=== PATIENT | female | born 1950 | race Caucasian/White ===

== ENCOUNTER 2018-06-26 08:03 | Emergency (ER) | payer MEDICARE ==
--- NOTE | 2018-06-26 08:42 | ER Document Report ---
ED General - General Chief Complaint: Chest Pain Stated Complaint: CHEST PAIN Time Seen by Provider: 06/26/18 08:24 Mode of Arrival: Ambulatory Information source: Patient Notes: 68-year-old female with a history of factor V Leiden presents emergency department with complaints of chest pain. She states that she had a sharp stabbing sensation located in the center of the chest that occurred 1 hour prior to arrival. Patient states that the pain lasted a few minutes and then resolved on its own. She states that she did have some brief shortness of breath associated with the pain. She also describes bilateral arm numbness and nausea with the pain. Patient states that the pain resolved on its own. She did not take any medication. She denies any alleviating or exacerbating factors. Patient states that she has been having this pain intermittently over the last 4 weeks. Patient notes that occasionally she will have lightheadedness, decreased vision, and near syncope associated with the chest pain. 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 2014 and 2016 that were normal. No stents were placed. She does have a history of hypertension and is on hydrochlorothiazide. Patient denies any hyperlipidemia, diabetes, coronary artery disease, family history of coronary artery disease, smoking. She also denies any calf pain, calf swelling, history of DVT or PE, hormone use, history of malignancy. - HPI Onset: Just prior to arrival Onset/Duration: Sudden Quality of pain: Sharp, Stabbing Severity: Moderate Associated symptoms: Chest pain, Shortness of breath Exacerbated by: Denies Relieved by: Denies Similar symptoms previously: Yes Recently seen / treated by doctor: No - Related Data Allergies/Adverse Reactions: Penicillins Allergy (Verified 06/26/18 08:36) Past Medical History - General Information source: Patient - Social History Smoking Status: Never Smoker Chew tobacco use (# tins/day): No Frequency of alcohol use: None Drug Abuse: None Family History: Reviewed & Not Pertinent Patient has suicidal ideation: No Patient has homicidal ideation: No - Past Medical History Cardiac Medical History: Reports: Hx Hypertension Renal/ Medical History: Denies: Hx Peritoneal Dialysis Past Surgical History: Reports: Hx Tonsillectomy, Hx Tubal Ligation Review of Systems - Review of Systems Constitutional: No symptoms reported EENT: No symptoms reported Cardiovascular: Chest pain Respiratory: Short of breath Gastrointestinal: No symptoms reported Genitourinary: No symptoms reported Female Genitourinary: No symptoms reported Musculoskeletal: No symptoms reported Skin: No symptoms reported Hematologic/Lymphatic: No symptoms reported Neurological/Psychological: No symptoms reported -: Yes All other systems reviewed and negative Physical Exam - Vital signs Vitals: Temp Pulse Resp BP Pulse Ox 98.5 F 68 16 129/72 H 95 06/26/18 08:18 06/26/18 08:18 06/26/18 08:18 06/26/18 08:18 06/26/18 08:18 - Notes Notes: PHYSICAL EXAMINATION: GENERAL: Well-appearing, well-nourished and in no acute distress. HEAD: Atraumatic, normocephalic. EYES: Pupils equal round and reactive to light, extraocular movements intact, conjunctiva are normal. ENT: Nares patent, oropharynx clear without exudates. Moist mucous membranes. NECK: Normal range of motion, supple without lymphadenopathy LUNGS: Breath sounds clear to auscultation bilaterally and equal. No wheezes rales or rhonchi. HEART: Regular rate and rhythm without murmurs ABDOMEN: Soft, nontender, nondistended abdomen. No guarding, no rebound. No masses appreciated. Female : deferred Musculoskeletal: Normal range of motion, no pitting or edema. No cyanosis. NEUROLOGICAL: Cranial nerves grossly intact. Normal speech, normal gait. Normal sensory, motor exams PSYCH: Normal mood, normal affect. SKIN: Warm, Dry, normal turgor, no rashes or lesions noted. Course - Re-evaluation Re-evalutation: 06/26/18 10:39 Heart score of 3. Low risk for major adverse cardiac event. Discussed results with the patient. I told her about the lung nodule seen on the CTA. No PE appreciated. She continues to be asymptomatic. I discussed admission for cardiac rule out versus discharge home and following up with her primary care physician and security operations center analyst outpatient for stress test. Patient declines admission to the hospital. I will obtain a second troponin. 06/26/18 12:43 Second troponin is within normal limits. Patient continues to be pain free and deny admission. She feels comfortable following outpatient with her primary care physician. I instructed the patient to continue taking her medications as directed, to follow-up with the primary care physician this week, and to return to the emergency department if she begins having worsening symptoms. The patient is agreeable with plan of care. 06/26/18 12:45 06/26/18 12:48 - Vital Signs Vital signs: Temp Pulse Resp BP Pulse Ox 98.5 F 68 16 127/74 H 97 06/26/18 08:18 06/26/18 08:18 06/26/18 10:11 06/26/18 10:11 06/26/18 10:11 - Laboratory Result Diagrams: 06/26/18 08:27 06/26/18 08:27 Laboratory results interpreted by me: 06/26/18 06/26/18 08:27 08:27 D-Dimer 1.18 H Est GFR ( Amer) 54 L Est GFR (Non-Af Amer) 44 L Glucose 114 H Discharge - Discharge Clinical Impression: Chest pain Qualifiers: Chest pain type: unspecified Qualified Code(s): R07.9 - Chest pain, unspecified Condition: Stable Disposition: HOME, SELF-CARE Instructions: Chest Pain of Unclear Cause ([facility]) Additional Instructions: Continue taking medications as directed, follow-up with your primary care physician this week, return to the emergency department if he began having worsening symptoms. Referrals: KARLY GARCIA MD [Primary Care Provider] - Follow up as needed SADIE RUIZ MD [ACTIVE STAFF] - Follow up as needed
[2018-06-26 08:43] LABS: ABSOLUTE BASOPHILS # (AUTO) 0.1 10^3/uL (0.0-0.2); ABSOLUTE EOSINOPHILS # (AUTO) 0.1 10^3/uL (0.0-0.6); ABSOLUTE MONOCYTES (AUTO) 0.7 10^3/uL (0.1-1.4); ABSOLUTE NEUT (AUTO) 5.1 10^3/uL (1.7-8.2); BASOPHILS % (AUTO) 0.9 % (0-2); EOSINOPHILS % (AUTO) 1.4 % (0-6); HEMATOCRIT 44.2 % (36.0-47.0); LYMPHOCYTES % (AUTO) 33.3 % (13-45); MEAN CORPUSCULAR HEMOGLOBIN 31.4 pg (27.0-33.4); MEAN CORPUSCULAR VOLUME 92 fl (80-97); MONOCYTES % (AUTO) 7.4 % (3-13); PLATELET COUNT 292 10^3/uL (150-450); RED BLOOD COUNT 4.79 10^6/uL (3.72-5.28); RED CELL DISTRIBUTION WIDTH 13.3 % (11.5-14.0); TOTAL CELLS COUNTED % (AUTO) 100 %; WHITE BLOOD COUNT 8.9 10^3/uL (4.0-10.5)
[2018-06-26] MEDS ORDERED: ASPIRIN 81 MG TABLET, CHEWABLE PO ONE (08:57)
[2018-06-26 09:00] LABS: ALANINE AMINOTRANSFERASE 33 U/L (9-52); ALBUMIN 4.8 g/dL (3.5-5.0); ALKALINE PHOSPHATASE 83 U/L (38-126); ANION GAP 10 (5-19); ASPARTATE AMINO TRANSFERASE 21 U/L (14-36); BILIRUBIN,DIRECT 0.1 mg/dL (0.0-0.4); BILIRUBIN,TOTAL 0.4 mg/dL (0.2-1.3); BLOOD UREA NITROGEN 18 mg/dL (7-20); CALCIUM 9.9 mg/dL (8.4-10.2); CARBON DIOXIDE 26 mmol/L (22-30); CHLORIDE 104 mmol/L (98-107); GLUCOSE 114 mg/dL (75-110); POTASSIUM 4.7 mmol/L (3.6-5.0); SODIUM 140.2 mmol/L (137-145); TOTAL PROTEIN 8.2 g/dL (6.3-8.2)
[2018-06-26] MEDS ORDERED: NORMAL SALINE 500 ML IV ONE (09:21)
--- NOTE | 2018-06-26 09:27 | RADIOLOGY REPORT (SQ) ---
EXAM DESCRIPTION: CHEST SINGLE VIEW COMPLETED DATE/TIME: 06/26/2018 9:12 am REASON FOR STUDY: chest pain COMPARISON: None. EXAM PARAMETERS: NUMBER OF VIEWS: One view. TECHNIQUE: Single frontal radiographic view of the chest acquired. RADIATION DOSE: NA LIMITATIONS: None. FINDINGS: LUNGS AND PLEURA: No opacities, masses or pneumothorax. No pleural effusion. MEDIASTINUM AND HILAR STRUCTURES: No masses. Contour normal. HEART AND VASCULAR STRUCTURES: Heart normal in size. Normal vasculature. BONES: No acute findings. HARDWARE: None in the chest. OTHER: No other significant finding. IMPRESSION: NO ACUTE RADIOGRAPHIC FINDING IN THE CHEST. TECHNICAL DOCUMENTATION: JOB ID: [id number] [employer]- All Rights Reserved Reading location - IP/workstation name: [email or web address]
--- NOTE | 2018-06-26 10:25 | RADIOLOGY REPORT (SQ) ---
EXAM DESCRIPTION: CTA CHEST COMPLETED DATE/TIME: 06/26/2018 10:10 am REASON FOR STUDY: chest pain, shortness of breath COMPARISON: None. TECHNIQUE: CT scan of the chest performed using helical scanning technique with dynamic intravenous contrast injection. Images reviewed with lung, soft tissue and bone windows. Reconstructed coronal and sagittal MPR images reviewed. Additional 3 dimensional post-processing performed to develop Maximal Intensity Projection images (VA P). All images stored on PACS. All CT scanners at this facility use dose modulation, iterative reconstruction, and/or weight based d osing when appropriate to reduce radiation dose to as low as reasonably achievable (ALARA). [facility]: Dose Right [facility]: CareDose [facility]: Dose Right [facility]: Teradose 4D [facility]: SpeechTrans CONTRAST TYPE AND DOSE: contrast/concentration: Isovue 350.00 mg/ml; Total Contrast Delivered: 77.0 ml; Total Saline Delivered: 80.0 ml Contrast bolus adequate for pulmonary arteries and aorta. RENAL FUNCTION: BUN 18 creatinine 1.21. RADIATION DOSE: CT Rad equipment meets quality standard of care and radiation dose reduction techniq ues were employed. CTDIvol: 19.8 - 20.2 mGy. DLP: 719 mGy-cm. . LIMITATIONS: None. FINDINGS: LUNGS AND PLEURA: Mild atelectasis/ scarring. 7.2 mm nodule in the posterior left upper l obe (axial series 4, image 25). No focal infiltrates. No pneumothorax. No pleural effusions or ple ural calcifications. AORTA AND GREAT VESSELS: No aneurysm. Contrast bolus not optimized for the aorta. HEART: No pericardial effusion. No significant coronary artery calcifications. PULMONARY ARTERIES: No emboli visualized in the main pulmonary arteries or the segmental branches. HILAR AND MEDIASTINAL STRUCTURES: No identified masses or abnormal nodes. HARDWARE: None in the chest. UPPER ABDOMEN: No significant findings. Diffuse fatty infiltration of the liver. Limited exam. THYROID AND OTHER SOFT TISSUES: No masses. No adenopathy. BONES: Old compression deformity of L 1. No acute findings. 3D MIPS: Confirm above findings. OTHER: No other significant finding. IMPRESSION: 1. NORMAL CTA OF THE CHEST. NO PULMONARY EMBOLI. 2. 7.2 MM NODULE IN THE POSTERIOR LEFT UPPER LOBE. NO PRIOR STUDIES FOR COMPARISON. FOLLOW-UP CL INICALLY INDICATED. COMMENT: [place] CRITERIA FOR FOLLOW-UP OF PULMONARY NODULES Incidentally detected new nodules in persons 35 or older. HIGH RISK: History of smoking or other known risk factors. 6-8mm single solid nodule: LOW RISK: CT 6-12 mo; then consider CT 18-24 mo. HIGH RISK: CT 6-12 mo; th en CT 18-24 mo. Quality ID # [id number]: Final reports with documentation of one or more dose reduction techniques (e.g., Au tomated exposure control, adjustment of the mA and/or kV according to patient size, use of iterative reconstruction technique) TECHNICAL DOCUMENTATION: JOB ID: [id number] [employer]- All Rights Reserved Reading location - IP/workstation name: [email or web address]
[2018-06-26 13:06] VITALS: BP 111/68
--- NOTE | 2018-06-27 18:30 | EKG REPORT ---
SEVERITY:- ABNORMAL ECG - SINUS RHYTHM LEFT AXIS DEVIATION LEFT VENTRICULAR HYPERTROPHY : Confirmed by: Bertha Russ MD 27-Jun-2018 18:30:08
== END 2018-06-26 13:14 | disposition home or self-care (01) ==
LOC: ER 08:03
DX: R07.9 Chest pain, unspecified (principal); R91.1 Solitary pulmonary nodule; R06.02 Shortness of breath; R20.0 Anesthesia of skin; R11.0 Nausea; H54.7 Unspecified visual loss; R55 Syncope and collapse; I10 Essential (primary) hypertension; Z79.899 Other long term (current) drug therapy; Z88.0 Allergy status to penicillin
CPT/HCPCS: 93005; 99285; 96360; 96361; 36415; 85025; 80053; 84484; 85379; 71045; 71275; 93010; A9270; J7040